=== PATIENT | male | born 1995 | race Caucasian/White ===

== ENCOUNTER 2019-03-30 18:07 | Emergency (ER) | payer MEDICAID ==
[~2019-03-30] VITALS: Ht 180.3 cm; Wt 91.0 kg
[2019-03-30 19:01] VITALS: BP 115/78
== END 2019-03-30 21:21 | disposition home or self-care (01) ==
LOC: ER 18:14
DX: R05 Cough (principal)
CPT/HCPCS: 71045; 99283